=== PATIENT | male | born 1980 | race Caucasian/White ===

== ENCOUNTER 2016-12-03 21:18 | Emergency (ER) | payer BC ==
[2016-12-03] MEDS ORDERED: cefTRIAXone VIAL(*) 250 MG VIAL IM ONE (23:37)
[2016-12-03] MEDS ORDERED: Azithromycin TAB* 250 MG PO ONE (23:38)
[2016-12-03] MEDS ORDERED: Levofloxacin TAB* 500 MG PO ONE (23:39)
[2016-12-03] MEDS ORDERED: Ketorolac INJ* 60 MG/2 ML VIAL IM ONE (23:43)
[2016-12-03] MEDS ORDERED: Lidocaine 1%* 5 ML VIAL INJ ONE (23:48)
[2016-12-03] MEDS ORDERED: Lidocaine 1%* 5 ML VIAL ONE (23:53)
--- NOTE | 2016-12-03 23:55 | ED ---
GI/ HPI - HPI Summary HPI Summary: Pt here w/ Lt testicular pain and swelling x 5 days. Noticed discomfort at work throughout the day - worse when he got home. Denies injury or trauma here. 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 Has progressed and now has swelling which is painful and impressive for him. Has pain w/urination at times but not every time - sharp pressure in testicle. Denies burning, discharge, frequency, urgency, ab pain, fever, chills, N/D/V, flank pain, skin changes in genital region. [place] w/ - has been a few weeks as they have a 15 months old. Pt admits to h/o genital warts from ex- but no h/o bacterial STD's. also denies sx of vaginal irritation, d/ c. - History of Current Complaint Chief Complaint: EDUrogenitalProblems Time Seen by Provider: 12/03/16 21:33 Stated Complaint: SWOLLEN TESTICLE Hx Obtained From: Patient, Family/Sausage Smoker - Pain Intensity: 8 - Allergy/Home Medications Allergies/Adverse Reactions: Allergies Allergy/AdvReac Type Severity Reaction Status Date / Time No Known Allergies Allergy Verified 12/03/16 21:23 PMH/Surg Hx/FS Hx/Imm Hx Previously Healthy: Yes Endocrine/Hematology History: Denies: Autoimmune Disease History: Denies: Hx Kidney Infection, Hx Kidney Stones, Other Problems/Disorders - bacterial STD Infectious Disease History: No Infectious Disease History: Denies: Traveled Outside the [place] in Last 30 Days - Family History Known Family History: Positive: None - Social History Occupation: Employed Full-time Lives: With Family Alcohol Use: Rare Hx Substance Use: No Substance Use Type: Reports: None Hx Tobacco Use: No Smoking Status (MU): Never Smoked Tobacco Review of Systems Constitutional: Negative Negative: Fever, Chills, Fatigue Eyes: Negative Cardiovascular: Negative Respiratory: Negative Gastrointestinal: Negative Positive: see HPI Musculoskeletal: Negative Skin: Negative Neurological: Negative Psychological: Normal All Other Systems Reviewed And Are Negative: Yes Physical Exam Triage Information Reviewed: Yes Vital Signs On Initial Exam: Initial Vitals Temp Pulse Resp BP Pulse Ox 97.6 F 82 16 149/87 97 12/03/16 21:24 12/03/16 21:24 12/03/16 21:24 12/03/16 21:24 12/03/16 21:24 Vital Signs Reviewed: Yes Appearance: Positive: No Pain Distress - appears mildly fatigued, Obese Skin: Positive: Warm, Dry Eyes: Positive: EOMI Respiratory/Lung Sounds: Positive: Breath Sounds Present Cardiovascular: Positive: Normal, RRR Abdomen Description: Positive: Nontender. Negative: CVA Tenderness (R), CVA Tenderness (L) Male Genital Exam: Positive: epididymal tenderness - Lt, scrotum tenderness (R) , scrotum tenderness (L) - edema. Negative: bleeding, hernia mass, lesions, urethral discharge Musculoskeletal: Positive: Normal, Strength/ROM Intact Neurological: Positive: Normal, Sensory/Motor Intact, Alert, Oriented to Person Place, Time, CN Intact II-III Psychiatric: Positive: Normal Diagnostics - Vital Signs Vital Signs Temp Pulse Resp BP Pulse Ox 12/03/16 21:24 97.6 F 82 16 149/87 97 - Laboratory Lab Statement: Any lab studies that have been ordered have been reviewed, and results considered in the medical decision making process. GIGU Course/Dx - Diagnoses Provider Diagnoses: Epididymitis, Hydrocele, bilateral Discharge - Discharge Plan Condition: Stable Disposition: HOME Prescriptions: HYDROcodone/ACETAMIN 5-325 MG* [[place] 5-325 TAB*] 1 tab PO Q6H PRN #8 tab MDD 4 PRN Reason: Pain Ibuprofen TAB* [Motrin TAB* 600 MG] 600 mg PO Q6H PRN #20 tab PRN Reason: Pain Levofloxacin TAB* [Levaquin 500 Tab*] 500 mg PO DAILY #9 tab Patient Education Materials: Epididymitis (ED), Hydrocele (ED) Forms: *Work Release Referrals: Kishore Viveros MD [Medical Doctor] - Additional Instructions: Drink plenty of water Complete antibiotics as directed Take pain medications as directed *If pain persists beyond treatment plan, follow-up with urology. Call to make an appointment. *If symptoms are worse, return to ED
[2016-12-04 00:29] VITALS: BP 135/89
[2016-12-04 00:33] LABS: Urine Bilirubin Negative (Negative); Urine Glucose Negative (Negative); Urine Nitrite Negative (Negative)
--- NOTE | 2016-12-04 07:39 | RAD ---
HISTORY: Testicular swelling, left COMPARISONS: None TECHNIQUE: Multiple transverse and longitudinal ultrasound images were obtained of the scrotum, using grayscale, color Doppler, and spectral Doppler imaging. FINDINGS: RIGHT: RIGHT TESTICLE: The right testicle measures 4 x 2 x 2.7 cm. The right testicle is homogeneous in echotexture, without testicular parenchymal mass. Normal arterial and venous waveforms are identified within the right testicle on spectral Doppler imaging. RIGHT EPIDIDYMIS: The right epididymis measures 1.5 cm at the head. RIGHT SCROTUM: There is small hydrocele. There is no varicocele. LEFT: LEFT TESTICLE: The left testicle measures 3.9 x 2.2 x 3 cm. The left testicle is homogeneous in echotexture, without testicular parenchymal mass. Normal arterial and venous waveforms are identified within the left testicle on spectral Doppler imaging. LEFT EPIDIDYMIS: The left epididymis is diffusely enlarged and heterogeneous and hypervascular. LEFT SCROTUM: There is a small hydrocele. There is no varicocele. OTHER: None IMPRESSION: 1. ENLARGED HYPERVASCULAR EPIDIDYMIS ON THE LEFT SUGGESTIVE OF ACUTE EPIDIDYMITIS. 2. NO TESTICULAR PARENCHYMAL MASS. 3. NO SONOGRAPHIC FEATURES OF TORSION. PLEASE NOTE THAT PARTIAL OR INTERMITTENT TORSION MAY BE SONOGRAPHICALLY NORMAL.
== END 2016-12-04 00:30 | disposition home or self-care (01) ==
LOC: ED 21:18
DX: N45.1 Epididymitis (principal); N50.812 Left testicular pain; N43.3 Hydrocele, unspecified
CPT/HCPCS: 76870; 81003; 96372; 99282; A9270-GY; J0696; J1885

== ENCOUNTER 2017-03-09 07:52 | Emergency (ER) | payer BC ==
[2017-03-09 07:57] VITALS: BP 146/70
--- NOTE | 2017-03-09 08:07 | UC ---
Dental HPI - HPI Summary HPI Summary: 37 y/o male presents to the urgent care c/o left upper jaw pain since yesterday. Pt reports one of his molar is broken there. Last night swelling started. This morning at 0300 he developed severe pain 8/10 and he took ibuprofen 800mg PO and pain resolved. Now pain is mild 2/10 and his left cheek is swollen. Pt denies fever, trismus, SOB, chest pain, sore throat, abdominal pain, N/V/D. He has a Dentist who extracted a molar in his RT upper jaw about 3 months ago. - History of Current Complaint Chief Complaint: UCDentalProblem Stated Complaint: DENTAL COMPLAINT Time Seen by Provider: 03/09/17 08:05 Hx Obtained From: Patient Onset/Duration: Gradual Onset, Lasting Days - 1 day, Still Present Severity: Moderate Pain Intensity: 2 Pain Scale Used: 0-10 Numeric Aggravating Factor(s): Chewing Alleviating Factor(s): OTC Meds - Allergies/Home Medications Allergies/Adverse Reactions: Allergies Allergy/AdvReac Type Severity Reaction Status Date / Time No Known Allergies Allergy Verified 03/09/17 07:57 PMH/Surg Hx/FS Hx/Imm Hx Previously Healthy: Yes - Pt denies PMHX - Surgical History Surgical History: None - Family History Known Family History: Positive: Hypertension, Diabetes Family History: Breast Cancer - Social History Occupation: Employed Full-time Lives: With Family Alcohol Use: None Substance Use Type: None Smoking Status (MU): Never Smoked Tobacco - Immunization History Most Recent Influenza Vaccination: Not UTD Review of Systems Constitutional: Negative Skin: Negative Eyes: Negative ENT: Dental Pain, Other - left upper jaw swelling Respiratory: Negative Cardiovascular: Negative Gastrointestinal: Negative Genitourinary: Negative Motor: Negative Neurovascular: Negative Musculoskeletal: Negative Neurological: Negative Psychological: Negative Is Patient Immunocompromised?: No All Other Systems Reviewed And Are Negative: Yes Physical Exam Triage Information Reviewed: Yes Vital Signs: Initial Vital Signs Temp 98.4 F 03/09/17 07:55 Pulse 70 03/09/17 07:55 Resp 18 03/09/17 07:55 BP 146/70 03/09/17 07:55 Pulse Ox 99 03/09/17 07:55 - Additional Comments Vital Signs Reviewed: Yes General: Well-Appearing,well nourished male, No Pain Distress, Well-Nourished Eyes: Positive: Conjunctiva Clear - PERRLA, EOMI, ENT: Positive: Normal ENT inspection, Hearing grossly normal, Pharynx normal, TMs normal - B/L exteranl ear canals clear,. Negative: Tonsillar swelling, Tonsillar exudate, Trismus Dental: Left upper jaw with positive:caries around tooth #14 with periodontal gingival swelling and erythema, tender to percussion. B/L anterior Cervical Lymphadenopathy , Mild left cheek with swelling Neck: Positive: Supple Respiratory: Positive: Chest non-tender, Lungs clear, Normal breath sounds, No respiratory distress Cardiovascular: Positive: RRR, No Murmur, Pulses Normal, Brisk Capillary Refill Abdomen Description: Positive: Nontender, No Organomegaly, Soft. Negative: CVA Tenderness (R), CVA Tenderness (L) Bowel Sounds: Positive: Present Musculoskeletal: Positive: Strength Intact, ROM Intact, No Edema Neurological Exam: Normal Psychological Exam: Normal Skin Exam: Normal Dental Complaint Course/Dx - Course Course Of Treatment: 37 y/o male presents to the urgent care c/o left upper jaw pain since yesterday. Pt reports one of his molar is broken there. Last night swelling started. This morning at 0300 he developed severe pain 8/10 and he took ibuprofen 800mg PO and pain resolved. Now pain is mild 2/10 and his left cheek is swollen. Pt denies fever, trismus, SOB, chest pain, sore throat, abdominal pain, N/V/D. He has a Dentist who extracted a molar in his RT upper jaw about 3 months ago. Hx obtained. Pt with probably a dental abscess aroun molar #14 examination. Pt given viscous Lidocaine at the clinic to alleviate symptoms. Pt Rx Amoxicillin PO and Naproxen PO for pain. Pt strongly advised to f/u with Dentist as soon as possible further evaluation and treatment. Pt understood and agreed with plan of care. Left the clinic ambulating. - Differential Dx/Diagnosis Differential Diagnosis/Dx: Dental Abscess, Dental Caries, Fractured Tooth, Peridontic Disease, Peritonsillar Abcess, Pharyngitis, TMJ Syndrome Provider Diagnoses: 1- Dental abscess at molar #14. 2- Elevated BP w/o Hx of HTN Discharge - Discharge Plan Condition: Stable Disposition: HOME Prescriptions: Amoxicillin PO (*) [Amoxicillin 875 MG (*)] 875 mg PO BID #20 tab Naproxen [Naproxen 500 mg] 500 mg PO Q8H PRN #30 tab PRN Reason: Pain Patient Education Materials: Dental Abscess (ED), Low Sodium Diet (ED) Referrals: [facility] [Outside] - 3 Days Additional Instructions: 1-Please take full course of antibiotic to avoid resistance. 2- Take Naproxen as instructed after meals to alleviate pain and swelling. 3- F/u with your Dentist or Dental List provided as soon as possible for further treatment. 4- If symptoms do not improve or worsen please return to the urgent care or f/u with your PCP for further evaluation and treatment 5- Your BP is elevated today please decrease salt in your diet, monitor BP and if it continues to be elevated please F/U with your PCP for furthr management
[2017-03-09] MEDS ORDERED: Lidocaine 2% VISCOUS* 15 ML UDC SWISH SPIT ONE (08:17)
== END 2017-03-09 08:36 | disposition home or self-care (01) ==
LOC: UCEAST 07:52
DX: K04.7 Periapical abscess without sinus (principal); R03.0 Elevated blood-pressure reading, without diagnosis of hypertension
CPT/HCPCS: 99212; G0463

== ENCOUNTER 2018-06-05 17:11 | Emergency (ER) | payer BC ==
[2018-06-05 17:43] VITALS: BP 105/63
[2018-06-05 17:57] LABS: Influenza A Molecular POSITIVE (Negative)
--- NOTE | 2018-06-05 18:12 | UC ---
FLU HPI - HPI Summary HPI Summary: Yesterday started w/ fever, cough, fatigue, and body aches. Pt did not get flu shot this yr. - History of Current Complaint Chief Complaint: UCRespiratory Stated Complaint: COUGH Time Seen by Provider: 06/05/18 17:58 Hx Obtained From: Patient Onset/Duration: Sudden Onset Pain Intensity: 6 Pain Scale Used: 0-10 Numeric Associated Signs & Symptoms: Positive: Fever, Myalgia. Negative: Headache, Vomiting - Allergy/Home Medications Allergies/Adverse Reactions: Allergies Allergy/AdvReac Type Severity Reaction Status Date / Time No Known Allergies Allergy Verified 06/05/18 17:39 Home Medications: Home Medications D-Methorphan/PE/Acetaminophen [Multi Symptom Flu & Sever 20-10-500 mg] 1 pow PO Q12HR PRN 06/05/18 [History Confirmed 06/05/18] PMH/Surg Hx/FS Hx/Imm Hx - Surgical History Surgical History: None - Family History Known Family History: Positive: None, Hypertension, Diabetes Family History: Breast Cancer - Social History Alcohol Use: Rare Substance Use Type: None Smoking Status (MU): Never Smoked Tobacco - Immunization History Most Recent Influenza Vaccination: Not UTD Review of Systems All Other Systems Reviewed And Are Negative: Yes Constitutional: Positive: Fever, Chills, Fatigue Skin: Negative: Rash Respiratory: Positive: Cough. Negative: Shortness Of Breath Gastrointestinal: Negative: Vomiting, Diarrhea Musculoskeletal: Positive: Myalgia Neurological: Negative: Headache Physical Exam Triage Information Reviewed: Yes Appearance: Well-Appearing Vital Signs: Initial Vital Signs Temp 98.8 F 06/05/18 17:38 Pulse 88 06/05/18 17:38 Resp 18 06/05/18 17:38 BP 105/63 06/05/18 17:38 Pulse Ox 98 06/05/18 17:38 Vital Signs Reviewed: Yes Eyes: Positive: Conjunctiva Clear ENT: Positive: Pharynx normal, TMs normal, Uvula midline Neck exam: Normal Neck: Positive: Supple, Nontender, No Lymphadenopathy. Negative: Nuchal Rigidity Respiratory Exam: Normal Cardiovascular Exam: Normal Neurological: Positive: Alert Skin: Negative: Rashes Flu Course/Dx - Course Course Of Treatment: flu like illness; acute. vitals stable and rapid flu +. will rx taiflu, discussed side effects. - Differential Dx/Diagnosis Provider Diagnosis: Influenza Discharge - Sign-Out/Discharge Documenting (check all that apply): Patient Departure All imaging exams completed and their final reports reviewed: No Studies - Discharge Plan Condition: Good Disposition: HOME Prescriptions: Oseltamivir SUSP 75 MG dose* [Tamiflu SUSP 75 MG dose*] 75 mg PO BID 5 Days #10 oral.syrin Patient Education Materials: Influenza (ED) Referrals: No Primary Care Phys,NOPCP [Primary Care Provider] - Additional Instructions: PLEASE FOLLOW UP WITH YOUR PCP - Billing Disposition and Condition Condition: GOOD Disposition: Home
== END 2018-06-05 18:15 | disposition home or self-care (01) ==
LOC: UCEAST 17:11
DX: J11.1 Influenza due to unidentified influenza virus with other respiratory manifestations (principal)
CPT/HCPCS: 99212; G0463